=== PATIENT | male | born 1985 | race Two or more races ===

== ENCOUNTER 2017-01-13 09:15 | Emergency (ER) | payer MEDICAID ==
[2017-01-13] MEDS ORDERED: TDAP ADULT 0.5 ML INJ (BOOSTRIX) IM ONE (10:07)
[2017-01-13] MEDS ORDERED: AMOXICILLIN/CLAVULANATE POT 875/125 MG TAB PO ONE (10:07)
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
[2017-01-13 11:33] VITALS: BP 153/96; PULSE 86; RESP 12; TEMP 97.9; O2SAT 95
== END 2017-01-13 11:32 | disposition home or self-care (01) ==
DX: S02.2XXA Fracture of nasal bones, initial encounter for closed fracture (principal); F17.200 Nicotine dependence, unspecified, uncomplicated; Z23 Encounter for immunization; W50.3XXA Accidental bite by another person, initial encounter; Y93.89 Activity, other specified